=== PATIENT | female | born 2000 | race Caucasian/White ===

== ENCOUNTER 2024-12-20 08:17 | Outpatient (CLI) | payer BC, SELFPAY ==
--- NOTE | ~2024-12-20 | US_ITS ---
US breast LT limited 12/20/2024 08:37 Indication: Follow-up left breast mass Procedure: High-resolution Limited left breast ultrasound Comparison: Ultrasound dated 04/06/2024 Findings: There is an oval circumscribed parallel oriented hypoechoic mass at 10:00, 3 cm from the ni pple in the area of palpable concern measuring 12 x 9 x 9 mm compared with 12 x 11 x 8 mm on prior ex amination. There is internal vascularity and mixed posterior attenuation. No additional masses are se en. Impression: 1: Stable to decreased size of likely benign left breast mass at 10:00, 3 cm from the nipple. BI-RADS CATEGORY 3-PROBABLY BENIGN FINDING RECOMMENDATION: 6 month follow up recommended Limited left breast ultrasound. Reviewed, dictated and finalized at location A. Impression: 1: Stable to decreased size of likely benign left breast mass at 10:00, 3 cm fr om the nipple. BI-RADS CATEGORY 3-PROBABLY BENIGN FINDING RECOMMENDATION: 6 month follow up recommended Limited left breast ultrasound.
== END 2024-12-20 08:18 | disposition home or self-care (01) ==
DX: R92.8 Other abnormal and inconclusive findings on diagnostic imaging of breast (principal)
CPT/HCPCS: 76642